=== PATIENT | male | born 1985 | race Caucasian/White ===

== ENCOUNTER 2023-12-29 08:00 | Outpatient (CLI) | payer BC, OTHER ==
--- NOTE | 2023-12-29 21:05 | XRAY Report ---
PROCEDURE: Chest 2V INDICATIONS: ASTHMA, MILD PERSISTENT TECHNIQUE: 2 views of the chest were acquired. COMPARISON: None. FINDINGS: Surgical changes and devices: None. Lungs and pleura: No pleural effusions or pneumothorax. Lungs are clear. Mediastinum: Mediastinal contours appear normal. Heart size is normal. Bones and chest wall: No suspicious bony lesions. Overlying soft tissues appear unremarkable. IMPRESSION: No acute cardiopulmonary process. Reviewed by: Blu Torres MD on 12/29/2023 9:04 PM PDT Approved by: Blu Torres MD on 12/29/2023 9:04 PM PDT Station ID: [id number]
== END 2023-12-29 23:59 | disposition home or self-care (01) ==
LOC: DI.S 08:00
PROVIDERS: ATTEND Physician Assistant
DX: J45.30 Mild persistent asthma, uncomplicated (principal)